=== PATIENT | male | born 2000 | race Caucasian/White ===

== ENCOUNTER 2024-12-09 18:17 | Emergency (ER) | payer MEDICAID ==
[~2024-12-09] VITALS: Ht 165.1 cm; Wt 78.0 kg
[2024-12-09 18:27] VITALS: O2SAT 98
[2024-12-09 19:11] LABS: BASOPHILS % 0.5 % (0.0-2.0); EOSINOPHILS % 1.3 % (0.0-5.0); HEMOGLOBIN. 14.4 g/dL (14.0-18.0); LYMPHOCYTES % 36.7 % (20.0-50.0); MEAN CORPUSCULAR HEMOGLOBIN 31.8 pg (28.0-32.0); MEAN CORPUSCULAR HGB CONC 35.1 g/dL (31.0-37.0); MEAN CORPUSCULAR VOLUME 90.5 fL (80.0-94.0); MEAN PLATELET VOLUME 10.2 fl (7.4-10.4); MONOCYTES % 11.5 % (2.0-8.0); PLATELET 152 x1000/uL (130-400); RED BLOOD CELL COUNT 4.53 mill/uL (4.7-6.1); RED CELL DISTRIBUTION WIDTH 13.2 % (11.6-14.6); WHITE BLOOD COUNT 5.7 x1000/uL (4.5-11.0)
[2024-12-09 19:19] LABS: CHLORIDE 106 mEq/L (98-107); POTASSIUM 3.5 mEq/L (3.5-5.1); SODIUM 141 mEq/L (136-145)
[2024-12-09 19:20] LABS: CALCIUM 9.3 mg/dL (8.7-10.4); CARBON DIOXIDE 28 mEq/L (21-32)
[2024-12-09 19:22] LABS: PROTHROMBIN TIME 10.9 sec (9.6-11.0)
[2024-12-09 19:25] LABS: GLUCOSE 107 mg/dL (70-105); UREA NITROGEN BLOOD 13 mg/dL (9-23)
[2024-12-09 19:26] LABS: ETHANOL BLOOD < 10 mg/dL (<10)
[2024-12-09 19:40] LABS: TROPONIN I HIGH SENSITIVITY < 4 ng/L (3.0-53)
[2024-12-09 20:55] VITALS: BP 131/77; PULSE 76; RESP 14; TEMP 36.8; O2SAT 96
== END 2024-12-09 21:00 | disposition home or self-care (01) ==
LOC: ER 18:42
DX: R07.89 Other chest pain (principal)
CPT/HCPCS: 36415; 71045; 80048; 80320; 84484; 85025; 99284; G0480